=== PATIENT | female | born 1985 ===

== ENCOUNTER 2020-10-04 12:30 | Inpatient (IN) ==
[2020-10-04] MEDS ORDERED: ONDANSETRON 4 MG/2 ML VIAL IV PRN ×2 (12:56→17:24)
[2020-10-04] MEDS ORDERED: CITRIC ACID/SODIUM CITRATE 30 ML UDCUP PO ONE (12:59)
[2020-10-04] MEDS ORDERED: ceFAZolin 2,000 MG/50 ML DUPLEX IV ONE (12:59)
[2020-10-04] MEDS ORDERED: LACTATED RINGERS 1,000 ML IV SCH ×2 (13:00→17:30)
[2020-10-04] MEDS ORDERED: NIFEdipine 10 MG CAPSULE PO ONE (13:07)
[2020-10-04] MEDS ORDERED: NIFEdipine 10 MG CAPSULE PO PRN (13:08)
[2020-10-04] MEDS ORDERED: FAMOTIDINE 20 MG/2 ML VIAL IV ONE ×2 (13:17→13:19)
[2020-10-04 13:23] LABS: Basophils % 0.3 % (0.0-0.8); Eosinophils # 0.1 10*3/uL (0.0-0.87); Eosinophils % 1.1 % (0.00-10.9); Hematocrit 35.5 VOL% (35.7-47.0); Hemoglobin 11.9 GM/DL (12.0-16.0); Immature Granulocytes % 0.6 %; Immature Granulocytes Absolute 0.04 #; Lymphocytes # 1.6 10*3/uL (1.4-4.0); Lymphocytes % 24.7 % (21.3-54.2); Mean Corpuscular HGB Conc 33.5 GM/DL (32-36); Mean Corpuscular Volume 86.2 FL (87-102); Mean Platelet Volume 10.6 FL (9.6-12.0); Neutrophils % 65.3 % (38.7-73.9); Platelet Count 127 T/CUMM (130-400); Red Blood Count 4.12 MC/CUMM (3.8-5.5); Red Cell Distribution Width 12.7 % (9.3-17.3); White Blood Count 6.5 T/CUMM (4-12)
[2020-10-04] MEDS ORDERED: OXYTOCIN 10 UNIT/ML VIAL IM ONE ×2 (13:30→14:37)
[2020-10-04] MEDS ORDERED: OXYTOCIN/LR 30 UNIT/1,000 ML BAG IV ONE (13:30)
[2020-10-04] MEDS ORDERED: BUPIVACAINE SPINAL 0.75% 2 ML AMP SPINAL ONE (13:33)
[2020-10-04] MEDS ORDERED: TRANEXAMIC ACID 1,000 MG/10 ML VIAL ONE (13:34)
[2020-10-04] MEDS ORDERED: miSOPROStoL 200 MCG TABLET ONE (13:34)
[2020-10-04] MEDS ORDERED: METHYLERGONOVINE 0.2 MG/1 ML AMP ONE (13:35)
[2020-10-04] MEDS ORDERED: CARBOPROST TROMETHAMINE 250 MCG/ML AMP IM ONE (13:36)
[2020-10-04] MEDS ORDERED: SODIUM CHLORIDE 0.9% 0 ML IV ONE (13:36)
[2020-10-04] MEDS ORDERED: PHENYLEPHRINE 1 MG/10 ML SYRINGE IV ONE ×3 (13:37→14:39)
[2020-10-04 13:49] LABS: Albumin 2.1 G/DL (3.4-5.0); Bilirubin,Direct 0.22 MG/DL (0.0-0.20); Bilirubin,Total 0.6 MG/DL (0.20-1.00); Osmolality,Calculated 276.7 MOS/KG (273-304); Potassium 4.1 MMOL/L (3.5-5.1); Total Protein 6.1 G/DL (6.4-8.2)
[2020-10-04 13:51] LABS: INR 0.9; PT Patient Result 10.6 SECS (10.5-12.0); Partial Thromboplastin Time 30.2 SECS (23.9-33.8)
[2020-10-04] MEDS ORDERED: DEXAMETHASONE 4 MG/1 ML VIAL ONE (14:09)
[2020-10-04] MEDS ORDERED: ONDANSETRON 4 MG/2 ML VIAL ONE (14:10)
[2020-10-04 14:21] LABS: Eosinophils 1 % (0-10); Lymphocytes 24 % (20-55); Segmented Neutrophils 63 % (50-85); Total Cells Counted 100
[2020-10-04 14:24] LABS: Atypical Lymphocytes Few; Hypochromasia Slight; Microcytosis Slight; Platelet Estimate Normal
[2020-10-04] MEDS ORDERED: SODIUM CHLORIDE 0.9% 1,000 ML IV PRN ×3 (14:26→14:53)
[2020-10-04] MEDS ORDERED: ePHEDrine 50 MG/ML VIAL ONE (14:30)
[2020-10-04 14:47] LABS: Cord Venous Blood HCO3 18.7 MMOL/L; Cord Venous Blood PCO2 46.3 MMHG; Cord Venous Blood PO2 20.2
[2020-10-04] MEDS ORDERED: SODIUM CHLORIDE 0.9% 1,000 ML IV ONE ×2 (14:54→15:06)
[2020-10-04] MEDS ORDERED: SODIUM CHLORIDE 0.9% 250 ML IV ONE ×2 (14:54→20:53)
[2020-10-04] MEDS ORDERED: PHENYLEPHRINE 10 MG/1 ML VIAL IV ONE ×2 (14:54→20:14)
[2020-10-04] MEDS ORDERED: LACTATED RINGERS 1,000 ML IV ONE (15:06)
[2020-10-04] MEDS ORDERED: OXYTOCIN/LR 20 UNIT/1,000 ML BAG IV ONE ×2 (15:24→17:24)
[2020-10-04] MEDS ORDERED: HEPARIN/NACL 0.9% 2 UNITS/ML 1,000 UNIT/500 ML BAG IV ONE ×2 (16:19→17:02)
[2020-10-04] MEDS ORDERED: LIDOCAINE 1% 5 ML VIAL ONE (16:19)
[2020-10-04] MEDS ORDERED: CALCIUM CHLORIDE 1,000 MG/10 ML VIAL IV ONE ×4 (16:19→22:13)
[2020-10-04] MEDS ORDERED: FUROSEMIDE 40 MG/4 ML VIAL ONE (17:09)
[2020-10-04] MEDS ORDERED: FUROSEMIDE 20 MG/2 ML VIAL IV ONE ×3 (17:10→18:00)
[2020-10-04] MEDS ORDERED: PHENYLEPHRINE DRIP 40 MG/250 ML PREMIX IV ONE ×2 (17:20→22:34)
[2020-10-04] MEDS ORDERED: IBUPROFEN 800 MG TABLET PO PRN (17:24)
[2020-10-04] MEDS ORDERED: RHO(D) IMMUNE GLOBULIN 300 MCG SYRINGE IM ONE (17:24)
[2020-10-04] MEDS ORDERED: SIMETHICONE CHEW 80 MG TABLET PO PRN (17:24)
[2020-10-04] MEDS ORDERED: ACETAMINOPHEN 325 MG TABLET PO PRN (17:24)
[2020-10-04] MEDS ORDERED: MEPERIDINE 50 MG/1 ML VIAL IV PRN (17:24)
[2020-10-04] MEDS ORDERED: MAGNESIUM HYDROXIDE SUSP 30 ML UDCUP PO PRN (17:24)
[2020-10-04] MEDS ORDERED: PHENYLEPHRINE DRIP 40 MG/250 ML PREMIX IV PRN (17:25)
[2020-10-04] MEDS ORDERED: NOREPINEPHRINE 4 MG/4 ML VIAL IV ONE ×3 (17:48→22:35)
[2020-10-04] MEDS ORDERED: PHENYLEPHRINE INJ 160 MG in SODIUM CHLORIDE 0.9% 234 ML IV PRN (17:52)
[2020-10-04] MEDS: NOREPINEPHRINE 8 MG in SODIUM CHLORIDE 0.9% 242 ML IV PRN (17:55)
[2020-10-04 18:02] LABS: Bilirubin,Urine Negative (Negative); Blood, Urine Negative (Negative); Glucose,Urine (UA) Negative (Negative); Ketones,Urine Negative (Negative); Mucus,Urine Moderate /LPF (Occasional); Nitrite,Urine Negative (Negative); Protein,Urine >=500 MG/DL; RBC,Urine 3 /HPF (0-4); Squamous Epithelial Cell,Urine Occasional /HPF (0-10); Urine Appearance Slightly Hazy (Clear); Urine Color Amber (Yellow); Urine Specific Gravity 1.028 (1.001-1.035)
[2020-10-04 18:24] LABS: Protein/Creatinine Ratio,Urine 2.6 RATIO
[2020-10-04] MEDS ORDERED: CALCIUM GLUCONATE 2,000 MG in SODIUM CHLORIDE 0.9% 100 ML IV ONE (18:35)
[2020-10-04 19:36] LABS: ABG Base Excess -15.2 MMOL/L (-2.5-2.5); ABG HCO3 10.5 MMOL/L (20-26); ABG Oxygen Saturation 98.8 % (95-100); ABG PCO2 24.1 MM HG (35-48); ABG PH 7.256 (7.35-7.45); ABG PO2 359.3 MM HG (80-95); ABG TCO2 11.2 MMOL/L (23-27); Glucose Heart Surgery 274 MG/DL (74-106); Hemoglobin Heart Surgery 7.5 G/DL (12.0-16.0); Potassium Heart/CVR 3.8 MMOL/L (3.5-5.1)
[2020-10-04] MEDS ORDERED: MIDAZOLAM 10 MG/2 ML VIAL ONE (19:40)
[2020-10-04 19:41] LABS: Hematocrit 40.4 VOL% (35.7-47.0); Hemoglobin 12.3 GM/DL (12.0-16.0)
[2020-10-04] MEDS ORDERED: fentaNYL 100 MCG/2 ML VIAL ONE ×2 (19:44→20:59)
[2020-10-04 19:58] LABS: PT Patient Result > 178.9 SECS (10.5-12.0)
[2020-10-04] MEDS ORDERED: EPINEPHrine 1 MG/ML VIAL ONE ×2 (19:59→22:34)
[2020-10-04 20:03] LABS: INR > 17.6
[2020-10-04 20:05] LABS: Partial Thromboplastin Time 86.3 SECS (23.9-33.8)
[2020-10-04] MEDS ORDERED: ALBUMIN 5% 12.5 GM/250 ML VIAL IV ONE ×3 (20:39→23:48)
[2020-10-04] MEDS ORDERED: FUROSEMIDE 20 MG/2 ML VIAL ONE (20:46)
[2020-10-04] MEDS ORDERED: INDIGO CARMINE 5 ML AMP ONE (20:47)
[2020-10-04] MEDS ORDERED: METHYLENE BLUE 10 ML VIAL IV ONE (20:47)
[2020-10-04] MEDS ORDERED: SEVOFLURANE 1 UNIT/15 MINUTE INH ONE (20:53)
[2020-10-04] MEDS ORDERED: LACTATED RINGERS 2,000 ML IV ONE (20:53)
[2020-10-04] MEDS ORDERED: ROCURONIUM 50 MG/5 ML VIAL IV ONE (20:53)
[2020-10-04] MEDS ORDERED: SUCCINYLCHOLINE 200 MG/10 ML VIAL ONE (20:53)
[2020-10-04] MEDS ORDERED: SODIUM CHLORIDE 0.9% 100 ML IV ONE (20:54)
[2020-10-04] MEDS: DOCUSATE SODIUM 100 MG CAPSULE PO SCH (20:57)
[2020-10-04 21:37] LABS: ABG Base Excess -18.5 MMOL/L (-2.5-2.5); ABG HCO3 11.2 MMOL/L (20-26); ABG Oxygen Saturation 98.9 % (95-100); ABG PCO2 48.8 MM HG (35-48); ABG PO2 374.5 MM HG (80-95); ABG TCO2 12.7 MMOL/L (23-27); Glucose Heart Surgery 221 MG/DL (74-106); Ionized Calcium Arterial 0.78 MMOL/L (1.21-1.46); Sodium Heart/CVR 135 MMOL/L (135-145)
[2020-10-04 21:41] LABS: ABG PH 6.977 (7.35-7.45); Hemoglobin Heart Surgery < 5.0 G/DL (12.0-16.0)
[2020-10-04] MEDS ORDERED: SODIUM BICARBONATE 50 MEQ/50 ML VIAL IV ONE ×5 (21:46→23:52)
[2020-10-04] MEDS: PHENYLEPHRINE DRIP 40 MG/250 ML PREMIX IV PRN (22:20)
[2020-10-04] MEDS ORDERED: CALCIUM CHLORIDE 1,000 MG/10 ML SYRINGE IV ONE ×5 (23:00→23:51)
[2020-10-04] MEDS ORDERED: CALCIUM GLUCONATE 1,000 MG/10 ML VIAL IV ONE (23:15)
[2020-10-04] MEDS ORDERED: CALCIUM GLUCONATE 1,000 MG in SODIUM CHLORIDE 0.9% 100 ML IV ONE ×2 (23:15→23:18)
[2020-10-04 23:21] LABS: Basophils # 0.1 10*3/uL (0.0-0.2); Basophils % 0.7 % (0.0-0.8); Eosinophils # 0.1 10*3/uL (0.0-0.87); Eosinophils % 0.7 % (0.00-10.9); Hematocrit 32.1 VOL% (35.7-47.0); Hemoglobin 9.7 GM/DL (12.0-16.0); Immature Granulocytes % 7.5 %; Immature Granulocytes Absolute 0.65 #; Lymphocytes # 2.2 10*3/uL (1.4-4.0); Lymphocytes % 25.8 % (21.3-54.2); Mean Corpuscular HGB Conc 30.2 GM/DL (32-36); Mean Corpuscular Volume 94.7 FL (87-102); Monocytes % 20.1 % (1.7-12.7); NRBC # 0.06 10*3/uL; Neutrophils % 45.2 % (38.7-73.9); Red Blood Count 3.39 MC/CUMM (3.8-5.5); Red Cell Distribution Width 15.3 % (9.3-17.3); White Blood Count 8.7 T/CUMM (4-12)
[2020-10-04 23:28] LABS: ABG Base Excess -20.3 MMOL/L (-2.5-2.5); ABG HCO3 9.6 MMOL/L (20-26); ABG Oxygen Saturation 98.8 % (95-100); ABG PCO2 40.3 MM HG (35-48); Glucose Heart Surgery 235 MG/DL (74-106); Hematocrit Heart Surgery 30.4 PERCENT (37-47); Hemoglobin Heart Surgery 9.8 G/DL (12.0-16.0); Potassium Heart/CVR 4.9 MMOL/L (3.5-5.1)
[2020-10-04 23:29] LABS: ABG PH 7.013 (7.35-7.45)
[2020-10-04 23:40] LABS: Platelet Count 19 T/CUMM (130-400)
[2020-10-04 23:43] LABS: Alanine Aminotransferase 91 U/L (13-56); Albumin 0.9 G/DL (3.4-5.0); Alkaline Phosphatase 24 U/L (45-117); Aspartate Amino Transferase 160 U/L (0-37); Blood Urea Nitrogen 14 MG/DL (7-18); Calcium 6.8 MG/DL (8.5-10.1); Carbon Dioxide 11 MMOL/L (21-32); Estimated Glom Filtration Rate 91 ML/MIN; Glucose 232 MG/DL (74-106); Osmolality,Calculated 297.6 MOS/KG (273-304); Potassium 5.1 MMOL/L (3.5-5.1); Sodium 146 MMOL/L (136-145); Total Protein < 2.0 G/DL (6.4-8.2)
[2020-10-04 23:51] LABS: Band Neutrophils 3 % (0-10); Eosinophils 1 % (0-10); Lymphocytes 13 % (20-55); Nucleated Red Blood Cells 2 (0-5); Platelet Estimate Decreased; Segmented Neutrophils 67 % (50-85); Total Cells Counted 100
[2020-10-05] MEDS: SODIUM BICARB INJ 150 MEQ in SODIUM CHLORIDE 0.45% 1,000 ML IV SCH ×2 (00:03→13:47)
[2020-10-05] MEDS ORDERED: PHENYLEPHRINE DRIP 40 MG/250 ML PREMIX IV ONE (00:09)
[2020-10-05] MEDS ORDERED: SODIUM BICARBONATE 50 MEQ/50 ML VIAL IV ONE ×16 (00:22→20:05)
[2020-10-05] MEDS ORDERED: CALCIUM CHLORIDE 1,000 MG/10 ML SYRINGE IV ONE ×6 (00:22→16:59)
[2020-10-05] MEDS ORDERED: DEXTROSE 50% 25 GM/50 ML VIAL IV ONE ×4 (00:24→07:10)
[2020-10-05] MEDS ORDERED: HYDROCORTISONE 100 MG VIAL IV ONE (00:27)
[2020-10-05] MEDS ORDERED: ALBUMIN 5% 12.5 GM/250 ML VIAL IV ONE ×3 (00:28→04:08)
[2020-10-05 00:32] LABS: INR 2.2
[2020-10-05 00:36] LABS: Partial Thromboplastin Time 131.4 SECS (23.9-33.8)
[2020-10-05 00:47] LABS: ABG Base Excess -9.1 MMOL/L (-2.5-2.5); ABG HCO3 16.8 MMOL/L (20-26); ABG PCO2 55.1 MM HG (35-48); ABG TCO2 19.1 MMOL/L (23-27); Glucose Heart Surgery 380 MG/DL (74-106); Potassium Heart/CVR 3.1 MMOL/L (3.5-5.1)
[2020-10-05 00:49] LABS: ABG PH 7.138 (7.35-7.45); Hematocrit Heart Surgery 7.8 PERCENT (37-47); Hemoglobin Heart Surgery < 5.0 G/DL (12.0-16.0)
[2020-10-05 01:00] LABS: Calcium 8.7 MG/DL (8.5-10.1); Osmolality,Calculated 320.4 MOS/KG (273-304); Potassium 3.3 MMOL/L (3.5-5.1)
[2020-10-05] MEDS ORDERED: FUROSEMIDE 40 MG/4 ML VIAL ONE (01:29)
[2020-10-05] MEDS ORDERED: FUROSEMIDE 40 MG/4 ML VIAL IV ONE ×2 (01:31→14:51)
[2020-10-05] MEDS ORDERED: FAMOTIDINE 20 MG/2 ML VIAL IV ONE ×2 (02:15→08:04)
[2020-10-05] MEDS ORDERED: diphenhydrAMINE 50 MG/1 ML VIAL IV ONE (02:17)
[2020-10-05] MEDS ORDERED: methylPREDNISolone SOD SUC 125 MG/2 ML VIAL ONE (02:17)
[2020-10-05] MEDS ORDERED: methylPREDNISolone SOD SUC 125 MG/2 ML VIAL IV ONE (02:18)
[2020-10-05] MEDS ORDERED: NOREPINEPHRINE 4 MG/4 ML VIAL IV ONE (02:23)
[2020-10-05] MEDS: NOREPINEPHRINE 8 MG in SODIUM CHLORIDE 0.9% 242 ML IV PRN ×3 (02:30→18:43)
[2020-10-05 02:31] LABS: ABG HCO3 18.6 MMOL/L (20-26); ABG PCO2 43.6 MM HG (35-48); Glucose Heart Surgery 380 MG/DL (74-106)
[2020-10-05 02:32] LABS: Hematocrit Heart Surgery 17.9 PERCENT (37-47); Hemoglobin Heart Surgery 5.7 G/DL (12.0-16.0)
[2020-10-05] MEDS ORDERED: METOPROLOL TARTRATE 5 MG/5 ML VIAL IV ONE (02:33)
[2020-10-05] MEDS: PHENYLEPHRINE DRIP 40 MG/250 ML PREMIX IV PRN ×2 (02:34→05:40)
[2020-10-05] MEDS ORDERED: PHENYLEPHRINE INJ 80 MG in SODIUM CHLORIDE 0.9% 492 ML IV PRN (02:47)
[2020-10-05 02:48] LABS: Calcium 10.1 MG/DL (8.5-10.1); Potassium 4.3 MMOL/L (3.5-5.1)
[2020-10-05] MEDS ORDERED: MAGNESIUM SULF RIDER 4 GM/100 ML PREMIX IV PRN (02:57)
[2020-10-05 03:08] LABS: Basophils % 0.2 % (0.0-0.8); Hematocrit 20.4 VOL% (35.7-47.0); Immature Granulocytes % 1.9 %; Immature Granulocytes Absolute 0.11 #; Mean Corpuscular HGB Conc 30.9 GM/DL (32-36); Mean Platelet Volume 10.7 FL (9.6-12.0); Monocytes % 6.2 % (1.7-12.7); NRBC # 0.05 10*3/uL; Neutrophils % 73.7 % (38.7-73.9); Platelet Count 40 T/CUMM (130-400); Red Blood Count 2.06 MC/CUMM (3.8-5.5); Red Cell Distribution Width 14.7 % (9.3-17.3); White Blood Count 5.7 T/CUMM (4-12)
[2020-10-05 03:14] LABS: Hemoglobin 6.3 GM/DL (12.0-16.0)
[2020-10-05] MEDS: MAGNESIUM SULF RIDER 2 GM/50 ML PREMIX IV PRN ×2 (03:27→05:30)
[2020-10-05 03:39] LABS: INR 1.9; PT Patient Result 20.8 SECS (10.5-12.0)
[2020-10-05 03:46] LABS: Partial Thromboplastin Time 107.3 SECS (23.9-33.8)
[2020-10-05 04:15] LABS: Basophils % 0.2 % (0.0-0.8); Eosinophils % 0.2 % (0.00-10.9); Hematocrit 20.5 VOL% (35.7-47.0); Immature Granulocytes % 1.7 %; Immature Granulocytes Absolute 0.07 #; Lymphocytes # 0.8 10*3/uL (1.4-4.0); Lymphocytes % 18.1 % (21.3-54.2); Mean Corpuscular HGB Conc 30.2 GM/DL (32-36); Mean Platelet Volume 9.9 FL (9.6-12.0); Monocytes % 11.2 % (1.7-12.7); NRBC # 0.06 10*3/uL; Neutrophils % 68.6 % (38.7-73.9); Platelet Count 107 T/CUMM (130-400); Red Blood Count 2.01 MC/CUMM (3.8-5.5); Red Cell Distribution Width 14.6 % (9.3-17.3); White Blood Count 4.2 T/CUMM (4-12)
[2020-10-05 04:18] LABS: Band Neutrophils 3 % (0-10); Hypochromasia 1+; Lymphocytes 16 % (20-55); Nucleated Red Blood Cells 1 (0-5); Platelet Estimate Decreased; Segmented Neutrophils 77 % (50-85); Total Cells Counted 100
[2020-10-05 04:19] LABS: ABG Base Excess -10.1 MMOL/L (-2.5-2.5); ABG HCO3 16.2 MMOL/L (20-26); ABG PCO2 37.7 MM HG (35-48); ABG PH 7.247 (7.35-7.45); ABG TCO2 15.8 MMOL/L (23-27); Glucose Heart Surgery 260 MG/DL (74-106); Hematocrit Heart Surgery 20.1 PERCENT (37-47); Potassium Heart/CVR 4.3 MMOL/L (3.5-5.1)
[2020-10-05 04:20] LABS: Hemoglobin 6.2 GM/DL (12.0-16.0); Hemoglobin Heart Surgery 6.4 G/DL (12.0-16.0)
[2020-10-05] MEDS ORDERED: fentaNYL 100 MCG/2 ML VIAL IV ONE (04:41)
[2020-10-05] MEDS ORDERED: MIDAZOLAM 2 MG/2 ML VIAL IV ONE ×2 (04:41→05:24)
[2020-10-05] MEDS ORDERED: FUROSEMIDE 20 MG/2 ML VIAL IV ONE (04:53)
[2020-10-05 05:05] LABS: Alanine Aminotransferase 275 U/L (13-56); Albumin 0.8 G/DL (3.4-5.0); Alkaline Phosphatase 24 U/L (45-117); Aspartate Amino Transferase 546 U/L (0-37); Blood Urea Nitrogen 13 MG/DL (7-18); Calcium 8.8 MG/DL (8.5-10.1); Carbon Dioxide 18 MMOL/L (21-32); Estimated Glom Filtration Rate 64 ML/MIN; Glucose 256 MG/DL (74-106); Osmolality,Calculated 326.5 MOS/KG (273-304); Potassium 4.5 MMOL/L (3.5-5.1); Total Protein < 2.0 G/DL (6.4-8.2)
[2020-10-05 05:08] LABS: Sodium 161 MMOL/L (136-145)
[2020-10-05 05:47] LABS: INR 1.9; PT Patient Result 20.4 SECS (10.5-12.0)
[2020-10-05 05:54] LABS: Partial Thromboplastin Time 128.1 SECS (23.9-33.8)
[2020-10-05 06:12] LABS: ABG Base Excess -8.1 MMOL/L (-2.5-2.5); ABG HCO3 18.1 MMOL/L (20-26); ABG Oxygen Saturation 95.5 % (95-100); ABG PCO2 40.7 MM HG (35-48); ABG PH 7.266 (7.35-7.45); ABG PO2 94.8 MM HG (80-95); ABG TCO2 19.4 MMOL/L (23-27); Glucose Heart Surgery 207 MG/DL (74-106); Potassium Heart/CVR 3.7 MMOL/L (3.5-5.1)
[2020-10-05 06:13] LABS: Hemoglobin Heart Surgery 5.8 G/DL (12.0-16.0)
[2020-10-05] MEDS ORDERED: SODIUM CHLORIDE 0.9% 1,000 ML IV PRN ×8 (06:16→17:55)
[2020-10-05 06:34] LABS: Hematocrit 18.4 VOL% (35.7-47.0); Immature Granulocytes % 3.4 %; Immature Granulocytes Absolute 0.07 #; Lymphocytes # 0.5 10*3/uL (1.4-4.0); Mean Corpuscular Volume 94.4 FL (87-102); Mean Platelet Volume 11.2 FL (9.6-12.0); Monocytes % 9.8 % (1.7-12.7); NRBC # 0.04 10*3/uL; Neutrophils % 64.8 % (38.7-73.9); Red Blood Count 1.95 MC/CUMM (3.8-5.5); Red Cell Distribution Width 15.2 % (9.3-17.3); White Blood Count 2.1 T/CUMM (4-12)
[2020-10-05 06:35] LABS: Hemoglobin 5.7 GM/DL (12.0-16.0)
[2020-10-05 06:36] LABS: Platelet Count 27 T/CUMM (130-400)
[2020-10-05] MEDS ORDERED: LACTATED RINGERS 1,000 ML IV ONE ×2 (07:10)
[2020-10-05] MEDS ORDERED: SODIUM BICARBONATE 10 MEQ/10 ML SYRINGE IV ONE (07:10)
[2020-10-05 07:39] LABS: ABG Base Excess -7.3 MMOL/L (-2.5-2.5); ABG HCO3 18.4 MMOL/L (20-26); ABG PCO2 33.4 MM HG (35-48); ABG PH 7.336 (7.35-7.45); ABG TCO2 17.2 MMOL/L (23-27)
[2020-10-05 07:47] LABS: Eosinophils % 0.3 % (0.00-10.9); Hematocrit 21.2 VOL% (35.7-47.0); Immature Granulocytes % 3.3 %; Immature Granulocytes Absolute 0.11 #; Lymphocytes # 0.8 10*3/uL (1.4-4.0); Lymphocytes % 24.6 % (21.3-54.2); Mean Corpuscular HGB Conc 28.3 GM/DL (32-36); Mean Corpuscular Volume 91.4 FL (87-102); Mean Platelet Volume 11.6 FL (9.6-12.0); Monocytes % 15.1 % (1.7-12.7); NRBC # 0.06 10*3/uL; Neutrophils % 56.7 % (38.7-73.9); Red Blood Count 2.32 MC/CUMM (3.8-5.5); Red Cell Distribution Width 17.1 % (9.3-17.3); White Blood Count 3.4 T/CUMM (4-12)
[2020-10-05 07:50] LABS: Platelet Count 22 T/CUMM (130-400)
[2020-10-05] MEDS ORDERED: VASOPRESSIN 20 UNITS/ML VIAL ONE (07:53)
[2020-10-05] MEDS ORDERED: CALCIUM GLUCONATE 1,000 MG in SODIUM CHLORIDE 0.9% 100 ML IV ONE (08:00)
[2020-10-05] MEDS ORDERED: diphenhydrAMINE 50 MG/1 ML VIAL ONE (08:04)
[2020-10-05 08:07] LABS: PT Patient Result 43.2 SECS (10.5-12.0)
[2020-10-05] MEDS ORDERED: MIDAZOLAM 2 MG/2 ML VIAL ONE ×2 (08:11)
[2020-10-05 08:12] LABS: INR 4.2
[2020-10-05] MEDS ORDERED: fentaNYL 100 MCG/2 ML VIAL ONE (08:12)
[2020-10-05 08:14] LABS: Partial Thromboplastin Time > 211.8 SECS (23.9-33.8)
[2020-10-05] MEDS ORDERED: ceFAZolin 1,000 MG VIAL ONE ×2 (08:21)
[2020-10-05] MEDS ORDERED: ROCURONIUM 50 MG/5 ML VIAL IV ONE ×2 (08:24→11:51)
[2020-10-05] MEDS ORDERED: PHENYLEPHRINE 1 MG/10 ML SYRINGE IV ONE (08:24)
[2020-10-05] MEDS ORDERED: CALCIUM CHLORIDE 1,000 MG/10 ML VIAL IV ONE ×2 (08:24→08:41)
[2020-10-05] MEDS ORDERED: PROTHROMBIN COMPLEX IV ONE ×2 (08:30→10:44)
[2020-10-05 08:39] LABS: Alanine Aminotransferase 647 U/L (13-56); Albumin 0.6 G/DL (3.4-5.0); Alkaline Phosphatase 17 U/L (45-117); Bilirubin,Indirect 1.2 MG/DL (0.0-1.0); Total Protein < 2.0 G/DL (6.4-8.2)
[2020-10-05] MEDS ORDERED: ALBUMIN IV ONE (08:41)
[2020-10-05] MEDS ORDERED: HEPARIN/NACL 0.9% 2 UNITS/ML 6,000 UNIT/3,000 ML BAG IV ONE (08:47)
[2020-10-05] MEDS ORDERED: MULTIVITAMIN (PRENATAL) TABLET PO SCH (09:00)
[2020-10-05] MEDS ORDERED: PANTOPRAZOLE 40 MG VIAL IV SCH (09:00)
[2020-10-05 09:26] LABS: Alanine Aminotransferase 645 U/L (13-56); Albumin < 0.6 G/DL (3.4-5.0); Alkaline Phosphatase 19 U/L (45-117); Blood Urea Nitrogen 14 MG/DL (7-18); Calcium 9.4 MG/DL (8.5-10.1); Carbon Dioxide 20 MMOL/L (21-32); Estimated Glom Filtration Rate 65 ML/MIN; Glucose 178 MG/DL (74-106); Osmolality,Calculated 320.6 MOS/KG (273-304); Potassium 4.3 MMOL/L (3.5-5.1); Total Protein < 2.0 G/DL (6.4-8.2)
[2020-10-05] MEDS ORDERED: TRANEXAMIC ACID 1,000 MG in SODIUM CHLORIDE 0.9% 100 ML IV ONE ×2 (09:30→17:54)
[2020-10-05 09:32] LABS: Sodium 160 MMOL/L (136-145)
[2020-10-05 09:35] LABS: ABG Base Excess -12.5 MMOL/L (-2.5-2.5); ABG HCO3 14.2 MMOL/L (20-26); ABG Oxygen Saturation 96.7 % (95-100); ABG PCO2 51.8 MM HG (35-48); ABG TCO2 16.3 MMOL/L (23-27)
[2020-10-05 09:38] LABS: ABG PH 7.095 (7.35-7.45)
[2020-10-05 09:50] LABS: Eosinophils % 0.3 % (0.00-10.9); Immature Granulocytes % 3.5 %; Immature Granulocytes Absolute 0.12 #; Lymphocytes # 0.8 10*3/uL (1.4-4.0); Mean Corpuscular HGB Conc 29.2 GM/DL (32-36); Mean Corpuscular Volume 97.4 FL (87-102); Mean Platelet Volume 10.5 FL (9.6-12.0); NRBC # 0.04 10*3/uL; Neutrophils % 60.2 % (38.7-73.9); Red Blood Count 1.16 MC/CUMM (3.8-5.5); Red Cell Distribution Width 15.5 % (9.3-17.3); White Blood Count 3.4 T/CUMM (4-12)
[2020-10-05 09:53] LABS: Hematocrit 11.3 VOL% (35.7-47.0); Hemoglobin 3.3 GM/DL (12.0-16.0); Platelet Count 38 T/CUMM (130-400)
[2020-10-05] MEDS ORDERED: TRANEXAMIC ACID 1,000 MG/10 ML VIAL ONE ×2 (09:54→10:02)
[2020-10-05 09:55] LABS: Aspartate Amino Transferase 1454 U/L (0-37)
[2020-10-05 10:02] LABS: Osmolality,Calculated 315.9 MOS/KG (273-304); Potassium 3.5 MMOL/L (3.5-5.1)
[2020-10-05 10:12] LABS: Aspartate Amino Transferase 1454 U/L (0-37)
[2020-10-05 11:12] LABS: ABG Base Excess -15.7 MMOL/L (-2.5-2.5); ABG HCO3 12.5 MMOL/L (20-26); ABG Oxygen Saturation 95.9 % (95-100); ABG TCO2 14.5 MMOL/L (23-27)
[2020-10-05] MEDS: DOCUSATE SODIUM 100 MG CAPSULE PO SCH (11:14)
[2020-10-05 11:15] LABS: ABG PH 7.052 (7.35-7.45)
[2020-10-05 11:19] LABS: Basophils % 0.7 % (0.0-0.8); Hematocrit 32.1 VOL% (35.7-47.0); Hemoglobin 10.2 GM/DL (12.0-16.0); Immature Granulocytes % 3.4 %; Lymphocytes # 0.6 10*3/uL (1.4-4.0); Lymphocytes % 20.1 % (21.3-54.2); Mean Corpuscular HGB Conc 31.8 GM/DL (32-36); Mean Platelet Volume 10.9 FL (9.6-12.0); Monocytes % 11.9 % (1.7-12.7); NRBC # 0.04 10*3/uL; Neutrophils % 63.9 % (38.7-73.9); Red Blood Count 3.38 MC/CUMM (3.8-5.5); Red Cell Distribution Width 14.7 % (9.3-17.3); White Blood Count 2.9 T/CUMM (4-12)
[2020-10-05] MEDS ORDERED: SODIUM BICARBONATE PEDIATRIC 5 MEQ/10 ML SYRINGE ONE (11:21)
[2020-10-05 11:29] LABS: Platelet Count 13 T/CUMM (130-400)
[2020-10-05 11:46] LABS: Calcium 8.4 MG/DL (8.5-10.1); Osmolality,Calculated 319.7 MOS/KG (273-304); Potassium 4.2 MMOL/L (3.5-5.1)
[2020-10-05] MEDS ORDERED: SEVOFLURANE 1 UNIT/15 MINUTE INH ONE (11:50)
[2020-10-05] MEDS ORDERED: EPINEPHrine 1 MG/ML VIAL ONE (11:51)
[2020-10-05 11:56] LABS: INR 1.9; PT Patient Result 20.3 SECS (10.5-12.0)
[2020-10-05 11:58] LABS: Partial Thromboplastin Time 110.4 SECS (23.9-33.8)
[2020-10-05] MEDS ORDERED: LACTATED RINGERS 1,000 ML IV PRN (12:13)
[2020-10-05 12:25] LABS: ABG Base Excess -12.5 MMOL/L (-2.5-2.5); ABG HCO3 14.7 MMOL/L (20-26); ABG Oxygen Saturation 99.5 % (95-100); ABG PCO2 34.7 MM HG (35-48); ABG PH 7.225 (7.35-7.45); ABG TCO2 13.5 MMOL/L (23-27); Glucose Heart Surgery 189 MG/DL (74-106); Hematocrit Heart Surgery 28.3 PERCENT (37-47); Hemoglobin Heart Surgery 9.1 G/DL (12.0-16.0); Potassium Heart/CVR 3.9 MMOL/L (3.5-5.1)
[2020-10-05] MEDS ORDERED: SODIUM BICARBONATE 50 MEQ/50 ML SYRINGE IV ONE (12:31)
[2020-10-05 13:55] LABS: Immature Granulocytes Absolute 0.05 #; Lymphocytes # 0.5 10*3/uL (1.4-4.0); Lymphocytes % 21.5 % (21.3-54.2); Mean Corpuscular HGB Conc 32.7 GM/DL (32-36); Mean Corpuscular Volume 94.8 FL (87-102); Mean Platelet Volume 10.2 FL (9.6-12.0); Monocytes % 13.4 % (1.7-12.7); NRBC # 0.06 10*3/uL; Neutrophils % 63.1 % (38.7-73.9); Platelet Count 70 T/CUMM (130-400); Red Blood Count 1.55 MC/CUMM (3.8-5.5); Red Cell Distribution Width 14.3 % (9.3-17.3); White Blood Count 2.5 T/CUMM (4-12)
[2020-10-05 13:59] LABS: Hematocrit 14.7 VOL% (35.7-47.0); Hemoglobin 4.8 GM/DL (12.0-16.0)
[2020-10-05 14:25] LABS: Albumin 1.3 G/DL (3.4-5.0); Bilirubin,Total 3.1 MG/DL (0.20-1.00); Calcium 8.5 MG/DL (8.5-10.1); Osmolality,Calculated 318.7 MOS/KG (273-304); Potassium 3.9 MMOL/L (3.5-5.1); Total Protein 2.4 G/DL (6.4-8.2)
[2020-10-05 14:46] LABS: Eosinophils % 0.3 % (0.00-10.9); Immature Granulocytes % 2.1 %; Immature Granulocytes Absolute 0.07 #; Lymphocytes # 0.8 10*3/uL (1.4-4.0); Lymphocytes % 25.5 % (21.3-54.2); Mean Corpuscular HGB Conc 31.4 GM/DL (32-36); Mean Corpuscular Volume 95.8 FL (87-102); Mean Platelet Volume 10.6 FL (9.6-12.0); Monocytes % 11.8 % (1.7-12.7); NRBC # 0.05 10*3/uL; Neutrophils % 60.3 % (38.7-73.9); Platelet Count 72 T/CUMM (130-400); Red Blood Count 1.43 MC/CUMM (3.8-5.5); Red Cell Distribution Width 14.3 % (9.3-17.3); White Blood Count 3.3 T/CUMM (4-12)
[2020-10-05 14:48] LABS: Hematocrit 13.7 VOL% (35.7-47.0); Hemoglobin 4.3 GM/DL (12.0-16.0)
[2020-10-05 14:59] LABS: INR 1.7; PT Patient Result 18.2 SECS (10.5-12.0); Partial Thromboplastin Time 65.1 SECS (23.9-33.8)
[2020-10-05 17:01] LABS: ABG Base Excess -10.3 MMOL/L (-2.5-2.5); ABG HCO3 16.1 MMOL/L (20-26); ABG Oxygen Saturation 99.5 % (95-100); ABG PCO2 34.6 MM HG (35-48); ABG PH 7.268 (7.35-7.45); ABG TCO2 15.1 MMOL/L (23-27); Glucose Heart Surgery 145 MG/DL (74-106); Hematocrit Heart Surgery 22.9 PERCENT (37-47); Hemoglobin Heart Surgery 7.3 G/DL (12.0-16.0); Potassium Heart/CVR 3.9 MMOL/L (3.5-5.1)
[2020-10-05 17:50] VITALS: BP 71/35
[2020-10-09 18:36] LABS: Phospholipid Ab IgM, S < 9.4 MPL
== END 2020-10-05 21:34 | disposition expired | DRG 539 ==
LOC: N.LDOUT 12:30 → N.LD 12:33 → N.ICU 16:56
PROVIDERS: ADMIT Obstetrics & Gynecology; ATTEND Obstetrics & Gynecology
PROC: IRAGPEL (2020-10-05 09:00)